=== PATIENT | male | born 1965 | race Hispanic/Latino ===

== ENCOUNTER 2024-01-02 17:19 | Observation (INO) | payer OTHER ==
[~2024-01-02] VITALS: Ht 170.2 cm; Wt 77.1 kg
[2024-01-02] MEDS ORDERED: SODIUM CHLORIDE FLUSH 10 ML SYR IV PRN (17:30)
[2024-01-02] MEDS: SODIUM CHLORIDE 0.9% 1000ML 1,000 ML IV ONE ×2 (17:33→19:37)
[2024-01-02] MEDS ORDERED: SODIUM CHLORIDE 0.9% 1000ML 1,000 ML ONE (17:35)
[2024-01-02] MEDS: ADENOSINE 6 MG/2 ML VIAL IV ONE (17:36)
[2024-01-02 17:55] LABS: BASOPHILS # (AUTO) 0.1 (0.0-0.1); BASOPHILS % 0.7 % (0.0-1.0); EOSINOPHILS % 0.3 % (0.0-6.0); HEMATOCRIT 42.6 % (38.2-49.6); HEMOGLOBIN 14.5 g/dL (14.0-18.0); LYMPHOCYTES # (AUTO) 3.7 (1.0-3.2); LYMPHOCYTES % 33.9 % (18.0-39.1); MEAN CORPUSCULAR HEMOGLOBIN 27.1 pg (28-32); MEAN CORPUSCULAR VOLUME 79.6 fL (81-99); MONOCYTES # (AUTO) 0.7 (0.2-0.8); MONOCYTES % 6.5 % (4.4-11.3); NEUTROPHILS # (AUTO) 6.3 (2.1-6.9); NEUTROPHILS % 58.3 % (38.7-80.0); PLATELET COUNT 253 x10e3/uL (140-360); RED BLOOD COUNT 5.35 x10e6/uL (4.3-5.7); RED CELL DISTRIBUTION WIDTH 14.7 % (11.7-14.4); WHITE BLOOD COUNT 10.87 x10e3/uL (4.8-10.8)
[2024-01-02] MEDS ORDERED: ONDANSETRON HCL INJ 2MG/ML 2ML 2 MG/ML VIAL IV PRN (18:15)
[2024-01-02] MEDS ORDERED: SODIUM CHLORIDE FLUSH 10 ML SYR INJ PRN (18:15)
[2024-01-02 18:17] LABS: ALANINE AMINOTRANSFERASE 21 IU/L (0-55); ALBUMIN 4.3 g/dL (3.5-5.0); ALBUMIN/GLOBULIN RATIO 1.3 (0.8-2.0); ALKALINE PHOSPHATASE 53 IU/L (40-150); ANION GAP 20.9 mmol/L (8-16); BILIRUBIN,TOTAL 0.7 mg/dL (0.2-1.2); BLOOD UREA NITROGEN 20 mg/dL (7-26); BUN/CREATININE RATIO 13 (6-25); CARBON DIOXIDE 17 mmol/L (22-29); CHLORIDE 108 mmol/L (98-107); CREATININE, SERUM 1.57 mg/dL (0.72-1.25); EST GLOMERULAR FILTRATION RATE 51 ML/MIN (>=60); GLUCOSE 145 mg/dL (74-118); POTASSIUM 3.9 mmol/L (3.5-5.1); SODIUM 142 mmol/L (136-145); TOTAL PROTEIN 7.5 g/dL (6.5-8.1)
[2024-01-02 18:26] LABS: TROPONIN I < 0.001 ng/mL (0-0.300)
[2024-01-02 18:37] LABS: FREE T4 (FREE THYROXINE) 1.08 ng/dL (0.8-1.8); THYROID STIMULATING HORMONE 2.591 uIU/mL (0.350-4.940)
[2024-01-02] MEDS: ASPIRIN 81 MG CHEW TAB PO ONE (19:36)
[2024-01-02 20:45] VITALS: BP 130/95; PULSE 86; RESP 20; TEMP 98.6; O2SAT 98
[2024-01-03] VITALS (12 sets, daily range): BP systolic 107–130; BP diastolic 77–95; PULSE 74–88; RESP 17–20; TEMP 97.8–98.7; O2SAT 97–100
[2024-01-03] MEDS ORDERED: ASPIRIN81 MG PO (01:17)
[2024-01-03 05:26] LABS: BASOPHILS # (AUTO) 0.1 (0.0-0.1); BASOPHILS % 0.7 % (0.0-1.0); EOSINOPHILS # (AUTO) 0.1 (0.0-0.4); EOSINOPHILS % 0.8 % (0.0-6.0); HEMATOCRIT 40.7 % (38.2-49.6); HEMOGLOBIN 13.1 g/dL (14.0-18.0); LYMPHOCYTES # (AUTO) 3.1 (1.0-3.2); LYMPHOCYTES % 40.7 % (18.0-39.1); MEAN CORPUSCULAR HEMOGLOBIN 26.3 pg (28-32); MEAN CORPUSCULAR HGB CONC 32.2 g/dL (31-35); MEAN CORPUSCULAR VOLUME 81.7 fL (81-99); MONOCYTES # (AUTO) 0.6 (0.2-0.8); MONOCYTES % 8.5 % (4.4-11.3); NEUTROPHILS # (AUTO) 3.7 (2.1-6.9); NEUTROPHILS % 49.2 % (38.7-80.0); PLATELET COUNT 215 x10e3/uL (140-360); RED BLOOD COUNT 4.98 x10e6/uL (4.3-5.7); RED CELL DISTRIBUTION WIDTH 14.9 % (11.7-14.4)
[2024-01-03 06:08] LABS: ANION GAP 14.7 mmol/L (8-16); POTASSIUM 3.7 mmol/L (3.5-5.1)
[2024-01-03 06:09] LABS: ALBUMIN 3.7 g/dL (3.5-5.0); ALBUMIN/GLOBULIN RATIO 1.4 (0.8-2.0); BILIRUBIN,TOTAL 0.9 mg/dL (0.2-1.2); CALCIUM 8.9 mg/dL (8.4-10.2); CREATININE, SERUM 0.89 mg/dL (0.72-1.25); TOTAL PROTEIN 6.4 g/dL (6.5-8.1)
[2024-01-03 07:10] LABS: TROPONIN I 0.124 ng/mL (0-0.300)
[2024-01-03 08:29] LABS: CHOL/HDL RATIO 4.8 (3.9-4.7)
[2024-01-03] MEDS: ASPIRIN 81 MG CHEW TAB PO SCH (08:56)
[2024-01-03] MEDS: METOPROLOL SUCCINATE 25 MG TAB XL PO SCH (08:57)
[2024-01-03 13:52] LABS: AMPHETAMINES SCREEN,URINE NEGATIVE (NEGATIVE); BENZODIAZEPINES SCREEN,URINE NEGATIVE (NEGATIVE); CANNABINOIDS SCREEN,URINE NEGATIVE (NEGATIVE); OPIATES SCREEN,URINE NEGATIVE (NEGATIVE); PHENCYCLIDINE SCREEN,URINE NEGATIVE (NEGATIVE)
[2024-01-03 13:53] LABS: METHADONE SCREEN, URINE NEGATIVE (NEGATIVE)
[2024-01-03 18:36] LABS: TROPONIN I 0.037 ng/mL (0-0.300)
[2024-01-04 00:51] VITALS: BP 122/80; PULSE 70; RESP 17; TEMP 97.6; O2SAT 100
[2024-01-04 04:00] VITALS: BP 114/77; PULSE 70; RESP 17; TEMP 97.7; O2SAT 100
[2024-01-04 07:01] LABS: TROPONIN I 0.018 ng/mL (0-0.300)
[2024-01-04 08:06] VITALS: BP 110/74; PULSE 76; RESP 16; TEMP 97.9; O2SAT 96
[2024-01-04 08:10] VITALS: BP 110/74; PULSE 76; RESP 16; TEMP 97.9; O2SAT 96
[2024-01-04] MEDS ORDERED: TOPROL XL25 MG PO (11:37)
[2024-01-04 11:56] VITALS: BP 114/80; PULSE 67; RESP 18; TEMP 98.2; O2SAT 96
== END 2024-01-04 13:20 | disposition home or self-care (01) ==
LOC: ER 17:31 → ERHOLD 18:12 → MED/SURG2 20:56
PROVIDERS: ADMIT Internal Medicine; ATTEND Internal Medicine
DX: I47.19 Other supraventricular tachycardia (principal); E78.5 Hyperlipidemia, unspecified; Z82.49 Family history of ischemic heart disease and other diseases of the circulatory system
CPT/HCPCS: 36415; 71045; 80053; 80061; 80307; 82550; 83880; 84439; 84443; 84484; 85025; 93005; 93306; 94760; 99284; G0378; J0153; J2405; J7030; U0002